=== PATIENT | male | born 1990 | race Caucasian/White ===

== ENCOUNTER 2017-08-23 19:40 | Inpatient (IN) | payer BC, OTHER ==
[~2017-08-23] VITALS: Ht 167.6 cm; Wt 64.4 kg
[2017-08-23] MEDS ORDERED: HYDROXYZINE PAMOATE 25 MG CAPSULE PO PRN (20:00)
[2017-08-23] MEDS ORDERED: CLONIDINE HCL 0.1 MG TABLET PO PRN (20:00)
[2017-08-23] MEDS ORDERED: IBUPROFEN 600 MG TABLET PO PRN (20:00)
[2017-08-23] MEDS ORDERED: MAGNESIUM HYDROXIDE 30 ML LIQUID UDC PO PRN (20:00)
[2017-08-23] MEDS ORDERED: ONDANSETRON 4 MG/2 ML VIAL IM PRN (20:00)
[2017-08-23] MEDS ORDERED: ACETAMINOPHEN 325 MG TABLET PO PRN (20:00)
[2017-08-23] MEDS ORDERED: MAG HYDROX/AL HYDROX/SIMETH 30 ML LIQUID UDC PO PRN (20:00)
[2017-08-23] MEDS ORDERED: LOPERAMIDE HCL 2 MG CAPSULE PO PRN ×2 (20:00)
[2017-08-23] MEDS ORDERED: BUPRENORPHINE HCL 2 MG TAB.SUBL SL PRN (20:00)
[2017-08-23] MEDS ORDERED: ONDANSETRON ODT 4 MG TAB.RAPDIS SL PRN (20:00)
[2017-08-23] MEDS ORDERED: MIRALAX 17 GM POWD.PACK PO PRN (20:00)
[2017-08-23] MEDS ORDERED: DICYCLOMINE HCL 20 MG TABLET PO PRN (20:00)
[2017-08-23] MEDS ORDERED: LORAZEPAM 1 MG TABLET PO PRN ×2 (20:00→21:15)
--- NOTE | 2017-08-23 20:30 | NUR ---
PRE-ADMISSION NOTE Patient is a 27-year-old male seen at intake at 2024. Patient appears diaphoretic and anxious; patient has notable body odor and appears as though he has not bathed in a few days. Patient's initial vitals as follows: BP: 128/69, HR: 83, RR: 18, SpO2 97% on room air, temp: 98.0 F, pain: 0/10. Patient states he is allergic to seafood and nuts, denies seizure history, and states this is his first detox. Patient reports using heroin daily and drinking several beers 3-4 times weekly. SN instructed patient on unit policies and procedures regarding skin check/contraband check, smoking passes, vitals Q4H, etc. Patient verbalized understanding of instructions. Admission to be completed upon patient's arrival to the unit.
[2017-08-23 20:56] LABS: BASOPHILS % (AUTO) 0.3 % (0.0-2.0); EOSINOPHILS # (AUTO) 0.2 K/uL (0.0-0.7); EOSINOPHILS % (AUTO) 1.9 % (0.0-7.0); HEMATOCRIT 44.6 % (36.7-47.1); HEMOGLOBIN 15.1 g/dL (12.5-16.3); LYMPHOCYTES # (AUTO) 1.5 K/uL (20.0-40.0); LYMPHOCYTES % (AUTO) 13.5 % (20.5-51.5); MEAN CORPUSCULAR HEMOGLOBIN 30.4 uug (23.8-33.4); MEAN CORPUSCULAR HGB CONC 34 g/dL (32.5-36.3); MEAN CORPUSCULAR VOLUME 89.8 fL (73.0-96.2); NEUTROPHILS # (AUTO) 8.6 K/uL (1.8-8.9); NEUTROPHILS % (AUTO) 75.3 % (38.5-71.5); PLATELET COUNT (AUTO) 304 K/uL (152-348); RED BLOOD CELL COUNT(AUTO) 4.97 MIL/uL (4.06-5.63); WHITE BLOOD COUNT (AUTO) 11.4 K/uL (3.6-10.2)
[2017-08-23 21:03] LABS: ALANINE AMINOTRANSFERASE 43 U/L (16-63); ALKALINE PHOSPHATASE 72 U/L (50-136); ASPARTATE AMINOTRANSFERASE 22 U/L (15-37); BILIRUBIN,TOTAL 0.6 mg/dL (0.2-1.0); CARBON DIOXIDE 28 mmol/L (21-32); CHLORIDE 103 mmol/L (98-107); CREATININE 1.2 mg/dL (0.6-1.3); GLUCOSE 110 mg/dL (74-106); MAGNESIUM 2.2 mg/dL (1.8-2.4); POTASSIUM 4.1 mmol/L (3.5-5.1); TOTAL PROTEIN, SERUM 8.1 g/dL (6.4-8.2); UREA NITROGEN, BLOOD 16 mg/dL (7-18)
[2017-08-23 21:07] LABS: ETHANOL < 3 MG/DL (0-0)
[2017-08-23 21:14] LABS: *AMPHETAMINE, URINE NEGATIVE (NEGATIVE); *BARBITURATE, URINE NEGATIVE (NEGATIVE); *CANNABINOID, URINE NEGATIVE (NEGATIVE); *COCCAINE, URINE POSITIVE (NEGATIVE); *OPIATE, URINE NEGATIVE (NEGATIVE); *PHENCYCLIDINE SCREEN,URINE NEGATIVE (NEGATIVE)
[2017-08-23] MEDS ORDERED: HYDROCORTISONE 1% CREAM 30 GM TUBE TP PRN (21:15)
[2017-08-23] MEDS ORDERED: LORAZEPAM 2 MG/1 ML VIAL IM PRN (21:15)
[2017-08-23] MEDS ORDERED: BUPRENORPHINE HCL 2 MG TAB.SUBL SL SCH (22:30)
--- NOTE | 2017-08-23 22:30 | NUR ---
ADMISSION NOTE Patient is a 27-year-old male admitted today 08/23/17 for medically supervised opiate withdrawal; arrived on the unit at 2053. Patient has had his blood drawn downstairs in the lab and has provided UDS at intake. Patient appears disheveled and diaphoretic, patient is visibly anxious and verbalizes feeling anxious about being in detox for the first time. Patient is alert and oriented x4, ambulatory with steady gait, able to answer questions coherently. Skin/body check was completed, no contraband found. When asked about common symptoms of withdrawal, patient stated, "I get bad muscle spasms in my middle back, nausea, vomiting, diarrhea, chills and hot flashes, and sweats." Patient denies any history of withdrawal induced seizures but states I checked myself into a hospital 2 Thanksgivings ago for suicidal thoughts. Patient denies SI/HI at this time. Current substance use: 1. Heroin (nasal insufflations): "5-15 bags on a good day, 2-3 bags on a bad day." Patient began using heroin 8 months ago, last intake was 08/22/17 of 3 bags. 2. ETOH (beer): "6-8 beers 3-4 times a week." Patient began drinking at age 17, approx. 10 years ago, last intake was 08/22/17 of 2 beers. Patient reports intermittent use of xanax, once a month as well as cannabis once a month. Patient reported to Dr. Craft that he occasionally uses cocaine and meth as well. Patient states that this is first detox, and that he is here because "it'll look good to the court if I go to treatment, but also I need to change my life - I wanna kick this off." When asked about current living situation patient states, "I was living with my girlfriend in our apartment but she went to a treatment facility in [place] and I came here so we gave up our apartment. I guess right now it's up in the air." Patient verbalizes that his current coping mechanism for stress is, "I use or drink." When asked whether or not he felt this form of coping was effective, patient responded, "I think it's effective, but detention, no." When asked about occupation, patient stated, "I don't really have one, I've been going from job to job." Patients initial vitals as follows: BP: 128/69, HR: 83, RR: 18, SpO2 97% on room air, temp: 98.0 F, pain: 0/10. Patients lung sounds are clear bilaterally upon auscultation, bowel sounds active x4 quadrants. Patients abdomen is soft and non-tender, patient reports his last BM was earlier this morning. Patient has two small cuts on his right index finger, and one on the back of his neck behind his right ear. Patient also has healed scars on bilateral forearms from self-inflicted wounds. Pictures of all 4 sites were taken and placed in the patients chart. Patient has food allergies to seafood and nuts. He reports following a regular diet at home. Patient is 55 and weighs 142 lbs. Patient reports he smokes pack to a full pack of cigarettes daily. Patients COWS was 11, CIWA was 14. Patient denies having a PCP and states he is not an organ donor. Patient reports using his albuterol inhaler occasionally for asthma. Patient denies using any other home medications. Patient was given a tour of the unit and shown to his room. Patient is on fall and seizure precautions, side rails up x2, bed locked in low position, call light within reach. Will continue to monitor.
[2017-08-23] MEDS: diphenhydrAMINE 50 MG CAPSULE PO PRN (23:02)
--- NOTE | 2017-08-23 23:02 | NUR ---
PRN ZOFRAN, BENADRYL, AND ATIVAN Patient reports feeling nauseous; PRN Zofran given SL. Patient reported having difficulty sleeping; PRN Benadryl given PO. Patient has a CIWA of 14; PRN Ativan 2mg given for CIWA greater than 12. Safety measures in place, side rails up x2, bed locked in lowest position, call light within reach. Will monitor for effectiveness.
[2017-08-23] MEDS: METHOCARBAMOL 750 MG TABLET PO PRN (23:13)
--- NOTE | 2017-08-23 23:13 | NUR ---
PRN ROBAXIN Patient reports middle back pain of 8/10 on pain scale. PRN Robaxin given PO. Safety measures in place, call light within reach. Will monitor for effectiveness.
--- NOTE | 2017-08-23 23:32 | NUR ---
PRN ZOFRAN REASSESSMENT Patient verbalizes improvement in nausea. PRN Zofran effective. Safety measures in place, call light within reach. Will continue to monitor.
[2017-08-24] VITALS: BP 121/76
--- NOTE | 2017-08-24 | NUR ---
COWS AND CIWA DEFERRED COWS and CIWA deferred due to patient sleeping; to be assessed and scored while patient is awake. Safety measures in place, side rails up x2, bed locked in low position, call light within reach. Will continue to monitor.
--- NOTE | 2017-08-24 00:02 | NUR ---
PRN BENADRYL AND ATIVAN REASSESSMENT Patient is observed in bed with eyes closed, respirations even and unlabored. PRN Benadryl effective. Unable to reassess CIWA at this time. Safety measures in place, call light within reach. Will continue to monitor.
--- NOTE | 2017-08-24 00:13 | NUR ---
PRN ROBAXIN REASSESSMENT Patient reports pain 0/10. PRN Robaxin noted to be effective. Safety measures in place, call light within reach. Will continue to monitor.
[2017-08-24 04:00] VITALS: BP 124/90
--- NOTE | 2017-08-24 04:00 | NUR ---
COWS AND CIWA DEFERRED COWS and CIWA deferred again at 4AM due to patient sleeping; to be assessed and scored while patient is awake. Patient's respirations are even and unlabored, 17/min. Safety measures in place, side rails up x2, bed locked in lowest position, call light within reach. Will continue to monitor.
[2017-08-24] MEDS ORDERED: ALBU18HF2 INH (06:19)
--- NOTE | 2017-08-24 07:00 | NUR ---
END OF SHIFT 302 Patient is a 27-year-old male admitted on 08/23/17 for opiate withdrawal. Patient is scheduled to start 5-day Subutex taper today. Initial COWS score was 11, and CIWA was 14, both taken last night. Patient received PRN Zofran for nausea, PRN Benadryl for difficulty sleeping, PRN Ativan 2mg for CIWA of 14, and PRN Robaxin for back pain; all PRN meds noted to be effective. Patient slept for 7 hours, total intake of 355mL, void x1, stool x0. Patient is on fall and seizure precautions with no history of seizure. Safety measures in place, side rails up x2, bed locked in lowest position, call light within reach. Will endorse to day shift.
--- NOTE | 2017-08-24 07:31 | NUR ---
Start of shift note; Received report from night nurse. Patient is a 27 year old male admitted on 08/23/17 for Opiate/ETOH withdrawals. Patient was placed on Subutex taper and PRN Ativan. Patient appears anxious, complaining of muscle aches, diaphoresis, agitation, intermittent nausea, chills. Educated patient regarding unit protocols and policies, patient verbalized understanding. All safety measures secured. Will continue to monitor patient.
[2017-08-24 08:00] VITALS: BP 128/83
[2017-08-24] MEDS ORDERED: TUBERCULIN,PURIF.PROT.DERIV. 5 TU/0.1 ML TEST ID ONE (09:00)
[2017-08-24] MEDS: BUPRENORPHINE HCL 2 MG TAB.SUBL SL SCH ×3 (09:03→20:49)
[2017-08-24] MEDS ORDERED: ALBUTEROL INH PRN (11:45)
[2017-08-24 12:00] VITALS: BP 117/73
[2017-08-24 16:00] VITALS: BP 120/68
--- NOTE | 2017-08-24 18:31 | NUR ---
End of shift note; Patient is AOx4. Patient remained compliant with treatment plan and medication regime. Patient is complaining of muscle aches, agitation, anxiety, diaphoresis, stomach cramps,patient is withdrawn and isolated. Encouraged patient to maintain adequate fluid and nutritional intake. All safety measures secured. Met all needs.
--- NOTE | 2017-08-24 19:09 | NUR ---
START OF SHIFT Patient is a 27-year-old male admitted on 08/23/17 for opiate withdrawal. Patient is currently on a 5-day Subutex taper, today is the first day, tolerating well. Patients last COWS was 9, last CIWA 4 per day shift nurse. Patient received no PRN medications during day shift. Upon assessment, patient appears disheveled and unshaven. He reports back pain of 3/10 on pain scale stating, "it hurts less than yesterday." Patient also reports headache of 2-3 out of 10 on pain scale, around the left side of his forehead, "it comes and goes." Patient reports having attended 2 groups today. Patient is on fall and seizure precautions with no history of seizures. Safety measures in place, side rails up x2, bed locked in low position, call light within reach. Will continue to monitor.
[2017-08-24 20:00] VITALS: BP 125/82
[2017-08-24] MEDS: diphenhydrAMINE 50 MG CAPSULE PO PRN (20:49)
--- NOTE | 2017-08-24 20:49 | NUR ---
PRN BENADRYL & MOTRIN Patient has a back ache and headache of 3/10 on pain scale, and is requesting sleep aid. PRN Motrin and Benadryl given PO. Safety measures in place, call light within reach. Will monitor for effectiveness.
[2017-08-24] MEDS: LORAZEPAM 1 MG TABLET PO PRN (20:57)
--- NOTE | 2017-08-24 20:57 | NUR ---
PRN ATIVAN 1 MG Patient has current CIWA of 12; PRN Ativan 1 mg given PO. Safety measures in place, side rails up x2, bed locked in lowest position, call light within reach. Will monitor for effectiveness.
--- NOTE | 2017-08-24 21:49 | NUR ---
PRN BENADRYL & MOTRIN REASSESSMENT Patient is observed resting in bed with eyes closed. Patient reports "I can hardly feel any back pain and my headache is completely gone." PRN meds effective. Safety measures in place, call light within reach. Will continue to monitor.
--- NOTE | 2017-08-24 21:57 | NUR ---
PRN ATIVAN REASSESSMENT Patient's current CIWA is 8; PRN Ativan effective in decreasing patient's anxiety and bringing down CIWA score. Safety measures in place, call light within reach. Will continue to monitor.
[2017-08-25] VITALS: BP 116/84
--- NOTE | 2017-08-25 | NUR ---
COWS & CIWA DEFERRED COWS and CIWA deferred due to patient sleeping; to be assessed and scored while patient is awake. Respirations even and unlabored, 16/min. Safety measures in place, side rails up x2, bed locked in lowest position, call light within reach. Will continue to monitor.
[2017-08-25 04:00] VITALS: BP 118/84
--- NOTE | 2017-08-25 04:00 | NUR ---
COWS & CIWA DEFERRED COWS and CIWA deferred again at 4AM due to patient sleeping; to be assessed and scored while patient is awake. Respirations even and unlabored, 14/min. Safety measures in place, side rails up x2, bed locked in low position, call light within reach. Will continue to monitor.
--- NOTE | 2017-08-25 07:00 | NUR ---
END OF SHIFT Patient is a 27-year-old male admitted on 08/23/17 for opiate withdrawal. Patient is currently on a 5-day Subutex taper, today is the second day, tolerating well. Patients last COWS was 10, last CIWA 8. Patient received PRN Benadryl, Motrin, and Ativan; all noted to be effective. Patient slept for 7 hours, total intake 1,243mL, void x2, stool x2. Patient is on fall and seizure precautions with no history of seizures. Safety measures in place, side rails up x2, bed locked in low position, call light within reach. Will endorse to day shift.
--- NOTE | 2017-08-25 07:24 | NUR ---
Start of shift note; Received report from night nurse. Patient is a 27 year old male admitted on 08/23/17 for Opiate/ETOH withdrawals. Patient was placed on Subutex taper and PRN Ativan. Patient appears anxious, complaining of muscle aches, diaphoresis, agitation, intermittent nausea, chills. Educated patient regarding unit protocols and policies, patient verbalized understanding. Encouraged patient to participate in group therapy and activities today. All safety measures secured. Will continue to monitor patient.
[2017-08-25 08:00] VITALS: BP 129/87
[2017-08-25] MEDS ORDERED: BUPRENORPHINE HCL 2 MG TAB.SUBL SL SCH (09:00)
[2017-08-25] MEDS ORDERED: KETOROLAC TROMETHAMINE 30 MG INJ IM PRN (10:30)
[2017-08-25 12:00] VITALS: BP 122/87
[2017-08-25] MEDS: BUPRENORPHINE HCL 2 MG TAB.SUBL SL SCH ×2 (14:15→21:03)
[2017-08-25 16:00] VITALS: BP 126/88
--- NOTE | 2017-08-25 18:37 | NUR ---
End of shift note; Patient is AOx4. Patient remained compliant with treatment plan and medication regime. Patient is complaining of muscle aches, agitation, anxiety, diaphoresis, stomach cramps. Encouraged patient to maintain adequate fluid and nutritional intake. Patient participated in group activities and therapies. All safety measures secured. Met all needs.
--- NOTE | 2017-08-25 19:30 | NUR ---
START OF SHIFT Pt is a 27 y/o male admitted on 08/23/17 for ETOH and opiate withdrawal. Pt is on a 5 day Subutex taper that started on 08/23/17, tolerating well. Pt has PRN Ativan available. Last COWS 9 and CIWA 5 and no PRNs administered. Upon assessment pt presents with anxiety, restlessness, body aches, muscle spasms in lower back /10, tremors, flushed skin, increased HR, flat and depressed affect, slumped posture, anhedonia and dysphoria. Pt on VTE pumps, educated pt about importance of use, pt verbalized understanding. Medications due. Safety measures in place. Call light within reach. Will continue to monitor.
[2017-08-25 20:00] VITALS: BP 128/81
[2017-08-25] MEDS: LORAZEPAM 1 MG TABLET PO PRN (21:02)
[2017-08-25] MEDS: GABAPENTIN 300 MG CAPSULE PO SCH (21:02)
--- NOTE | 2017-08-25 21:02 | NUR ---
PRN ATIVAN 1 MG ADMINISTRATION SHARATHWA 9, orders to give Ativan 1 mg. Pt presents with anxiety, intermittent sweats, agitation, restlessness and difficulty sitting still. Safety measures in place. Call light within reach. Will continue to monitor. Addendum: 08/25/17 at 2337 by ROBERT BOBBY RN CORRECTION: IGNACIO [id number]
[2017-08-25] MEDS: BACLOFEN 10 MG TABLET PO SCH (21:03)
[2017-08-25] MEDS: CLONIDINE HCL 0.1 MG TABLET PO SCH (21:03)
--- NOTE | 2017-08-25 22:02 | NUR ---
PRN ATIVAN 1 MG REASSESSMENT CIWA 7. Pt has improvement in tremors and anxiety. Pt still presents with anxiety and restlessness. Safety measures in place. Call light within reach. Will continue to monitor.
--- NOTE | 2017-08-26 | NUR ---
COWS/CIWA DEFERRED AND VITALS REFUSED Pt laying in bed with eyes closed, COWS/CIWA deferred, to be assessed when pt is awake per orders. Vitals refused. Respirations even and unlabored. Safety measures in place. Call light within reach. Will continue to monitor.
--- NOTE | 2017-08-26 07:05 | NUR ---
END OF SHIFT Pt is a 27 y/o male admitted on 08/23/17 for ETOH and opiate withdrawal. Pt is on a 5 day Subutex taper that started on 08/23/17, tolerating well. Pt on VTE pumps, educated pt about importance of use, pt verbalized understanding. Pt presented with anxiety, restlessness, body aches, muscle spasms in lower back 6/10, tremors, flushed skin, increased HR, flat and depressed affect, slumped posture, anhedonia and dysphoria. Scheduled medications and PRN Ativan 1 mg administered, effective in S/S of withdrawal AEB COWS 9 and CIWA 8 lowered to COWS 9 and CIWA 7 during shift. Pt slept 6 hours. Intake 950 ml, void x 2, stool x 0. Safety measures in place. Call light within reach. Pts needs have been met. Endorsed to day shift nurse.
--- NOTE | 2017-08-26 07:28 | NUR ---
Start of shift note; Received report from night nurse. Patient is a 27 year old male admitted on 08/23/17 for Opiate/ETOH withdrawals. Patient was placed on Subutex taper and PRN Ativan. Patient appears anxious, complaining of muscle aches, diaphoresis, agitation, intermittent nausea, chills. Educated patient regarding unit protocols and policies, patient verbalized understanding. Encouraged patient to maintain adequate nutritional and fluid intake. Patient slept for 6 hours. All safety measures secured. Will continue to monitor patient.
[2017-08-26 08:00] VITALS: BP 127/80
[2017-08-26] MEDS: BUPRENORPHINE HCL 2 MG TAB.SUBL SL SCH ×3 (08:21→20:57)
[2017-08-26] MEDS: BACLOFEN 10 MG TABLET PO SCH ×3 (08:21→20:58)
[2017-08-26] MEDS: GABAPENTIN 300 MG CAPSULE PO SCH ×2 (08:21→20:58)
[2017-08-26] MEDS: CLONIDINE HCL 0.1 MG TABLET PO SCH ×2 (08:21→20:58)
[2017-08-26 10:08] LABS: HEPATITIS B SURFACE AG Negative (Negative)
[2017-08-26 12:00] VITALS: BP 133/82
[2017-08-26 16:00] VITALS: BP 137/87
--- NOTE | 2017-08-26 18:41 | NUR ---
End of shift note; Patient is AOx4. Patient remained compliant with treatment plan and medication regime. Patient is complaining of muscle aches, agitation, anxiety, diaphoresis, stomach cramps. Encouraged patient to maintain adequate fluid and nutritional intake. Patient participated in group activities and therapies. All safety measures secured. Last COWS score is 9 and last CIWA score is 4 at 1600. Met all needs.
--- NOTE | 2017-08-26 19:30 | NUR ---
START OF SHIFT Pt is a 27 y/o male admitted on 08/23/17 for ETOH and opiate withdrawal. Pt is on a 5 day Subutex taper that started on 08/23/17, tolerating well. Pt has PRN Ativan available. Last COWS 9 and CIWA 4 and no PRNs administered. Upon assessment pt presents with anxiety, restlessness, body aches, muscle spasms in lower back 10, tremors, flushed skin, increased HR and BP, flat and depressed affect, slumped posture, difficulty falling asleep, anhedonia and dysphoria. Pt on VTE pumps, educated pt about importance of use, pt verbalized understanding. Medications due. Safety measures in place. Call light within reach. Will continue to monitor.
[2017-08-26 20:00] VITALS: BP 132/76
[2017-08-26] MEDS: diphenhydrAMINE 50 MG CAPSULE PO PRN (21:01)
[2017-08-26] MEDS: METHOCARBAMOL 750 MG TABLET PO PRN (21:01)
--- NOTE | 2017-08-26 21:01 | NUR ---
CRISTINA DESOUZA AND RHONDA Pt complains of body aches, mostly in lower back 6/10 and requests sleep aid. Safety measures in place. Call light within reach. Will continue to monitor.
--- NOTE | 2017-08-26 22:01 | NUR ---
PRN ROBAXIN AND BENADRYL REASSESSMENT Pt reports body aches reduced to tolerable level. Pt remains awake at this time, but states "I'm more tired now...I'll probably go to sleep soon." Safety measures in place. Call light within reach. Will continue to monitor.
[2017-08-27] VITALS: BP 137/86
--- NOTE | 2017-08-27 07:10 | NUR ---
END OF SHIFT Pt is a 27 y/o male admitted on 08/23/17 for ETOH and opiate withdrawal. Pt is on a 5 day Subutex taper that started on 08/23/17, tolerating well. Pt on VTE pumps, educated pt about importance of use, pt verbalized understanding. Pt presented with anxiety, restlessness, body aches, muscle spasms in lower back 6/10, tremors, flushed skin, increased HR and BP, flat and depressed affect, slumped posture, difficulty falling asleep, anhedonia and dysphoria. Scheduled medications and PRN Robaxin and Benadryl administered, effective in S/S od withdrawal AEB COWS 10 CIWA 9 lowered to COWS 8 CIWA 7 during shift. Pt slept 7 hours. Intake 1835 ml, void x 3, stool x 1. Safety measures in place. Call light within reach. Pts needs have been met. Endorsed to day shift nurse.
[2017-08-27 08:00] VITALS: BP 127/79
--- NOTE | 2017-08-27 08:20 | NUR ---
START OF SHIFT: RECEIVED PT A/O X 4. HE PRESENTS WITH ANXIOUS MOOD AND CONGRUENT AFFECT.HE REPORTS GENERALIZED BODY ACHES,ANXIETY,NIGHT SWEATS , CHILLS, RESTLESSNESS AND IRRITABILITY. COWS 8. HE STATES SUBUTEX IS EFFECTIVE IN REDUCING S/S OF W/D. ENCOURAGED GROUP ATTENDANCE TO IMPROVE COPING SKILLS AND PREVENT RELAPSE. WILL CONTINUE TO MONITOR AND MANAGE S/S OF W/D.
[2017-08-27] MEDS: GABAPENTIN 300 MG CAPSULE PO SCH ×3 (09:04→21:03)
[2017-08-27] MEDS: BUPRENORPHINE HCL 2 MG TAB.SUBL SL SCH ×2 (09:05→21:03)
[2017-08-27] MEDS: BACLOFEN 10 MG TABLET PO SCH (09:05)
[2017-08-27] MEDS: CLONIDINE HCL 0.1 MG TABLET PO SCH ×2 (09:05→15:20)
[2017-08-27 12:00] VITALS: BP 155/94
[2017-08-27] MEDS: LIDOCAINE 5% PATCH TD SCH (12:08)
[2017-08-27] MEDS ORDERED: CLON0.1T14 PO (13:17)
[2017-08-27] MEDS ORDERED: DIPH50CA37 PO (13:17)
[2017-08-27] MEDS ORDERED: HYDR-3895 PO (13:17)
[2017-08-27] MEDS ORDERED: GABA-534 PO ×2 (13:17)
[2017-08-27] MEDS ORDERED: LIDO30AD10 TD (13:17)
[2017-08-27] MEDS ORDERED: METH-406 PO (13:17)
[2017-08-27] MEDS ORDERED: IBUP-1955 PO (13:17)
[2017-08-27] MEDS: BACLOFEN 20 MG TABLET PO SCH ×2 (15:19→21:03)
[2017-08-27] MEDS: SERTRALINE HCL 50 MG TABLET PO SCH (15:19)
[2017-08-27 16:00] VITALS: BP 110/65
--- NOTE | 2017-08-27 18:44 | NUR ---
END OF SHIFT: PT CONTINUES ON SUBUTEX TAPER TO MANAGE S/S OF W/D WHICH INCLUDE ANXIETY,DEPRESSION,RESTLESSNESS,AND IRRITABILITY.LAST COWS 7. HE INTERACTED WITH PEERS AND ATTENDED GROUPS AND ACTIVITIES TODAY. NEW ORDER PER PSYCH MD FOR [place] DAILY WHICH WAS ADMINISTERED ORDERED.NO PRNS GIVEN ON DAY SHIFT. WILL PASS SHIFT REPORT TO ONCOMING NIGHT NURSE.
[2017-08-27 20:00] VITALS: BP 125/82
--- NOTE | 2017-08-27 20:00 | NUR ---
Start of Shift Note Received a 27 y/o male px, admitted for medically supervised withdrawals from Heroin and Beer. Px was placed on 5 day Subutex taper. Px is tolerating well. Last reported COWS 7 from AM shift nurse. During the rounds at 1999, px was awake in the room in standing position. Px looks anxious. Unfolded clothes noted on top of the cabinet. Few unfinished drinks noted on top of bedside table. Px stated that his anxiety is 3-4/10 and back pain 2/10. Bed is in lowest position, side rails up 2x, and call light within reach. We'll continue to monitor.
[2017-08-27] MEDS: CLONIDINE HCL 0.2 MG TABLET PO SCH (21:03)
[2017-08-28] VITALS: BP 108/60
[2017-08-28 04:00] VITALS: BP 106/63
--- NOTE | 2017-08-28 04:00 | NUR ---
COWS and CIWA deferred COWS and CIWA deferred due to the px is asleep, to assess if the px is awake per doctor's order. We'll continue to monitor.
--- NOTE | 2017-08-28 07:08 | NUR ---
End of Shift Note During the shift, px didn't receive any PRN medication. Px didn't complain of anything. Px's oral intake is 1 L, voided 2x, No BM. Px slept for 6.5 hours. Last COWS 6 and CIWA 6. At 0630, px is asleep on bed in fowlers position. Bed is in lowest position, side rails up 2x, and call light within reach. We'll continue to monitor. Px endorsed to am shift nurse.
--- NOTE | 2017-08-28 07:15 | NUR ---
Start of Shift Notes: Received patient in his room. Awake, alert and verbally responsive. Patient appears disheveled. Shower was encouraged. Appears drowsy when waking. Denies S/i or H/I noted. No AV hallucinations noted. Unfolded clothes noted on patient's bedside table. On fall and seizure precautions. Patient is a 27 year old male admitted for opiate and ETOH withdrawal. Placed on a 5-day Subutex taper as ordered. No adverse reactions noted. Educated patient on his current plan of care for the day and his medication regimen. Encouraged oral fluid intake and encouraged group participation to learn new skills to prevent relapse. Will continue to monitor.
[2017-08-28 08:00] VITALS: BP 104/76
[2017-08-28] MEDS: CLONIDINE HCL 0.1 MG TABLET PO SCH ×2 (08:41→14:09)
[2017-08-28] MEDS: SERTRALINE HCL 50 MG TABLET PO SCH (08:41)
[2017-08-28] MEDS: GABAPENTIN 300 MG CAPSULE PO SCH ×3 (08:41→21:50)
[2017-08-28] MEDS: BACLOFEN 20 MG TABLET PO SCH ×3 (08:41→21:50)
[2017-08-28] MEDS: LIDOCAINE 5% PATCH TD SCH (08:41)
[2017-08-28] MEDS ORDERED: BUPRENORPHINE HCL 2 MG TAB.SUBL SL SCH (09:00)
[2017-08-28 12:00] VITALS: BP 118/84
--- NOTE | 2017-08-28 13:30 | NUR ---
Mid Shift Notes: COWS 7/CIWA 3, patient is in his room. Eating lunch. Participated in group and activities in AM.
[2017-08-28 16:00] VITALS: BP 119/80
--- NOTE | 2017-08-28 19:08 | NUR ---
End of Shift Notes: Patient completed his 5-day Subutex taper successfully to manage symptoms related to opiate withdrawal. VS monitored closely. No significant abnormalities noted. Withdrawal symptoms were closely monitored. Initial COWs 8/CIWA 5, patient presented with gross tremors, chills, hot flashes, myalgia, anxiety, agitation, facial flushing. Last COWS 5/CIWA 3. Patient verbalized that Subutex was effective in reducing his withdrawal symptoms. Able to participate in group and activities. Appetite good. All needs met and attended. Will continue to monitor.
[2017-08-28 20:00] VITALS: BP 129/77
--- NOTE | 2017-08-28 20:00 | NUR ---
Start of Shift Note Received a 27 y/o male px, admitted for medically supervised withdrawals from Heroin and Beer. Px finished 5 day Subutex taper. Px tolerated well. Px is to be D/C tomorrow, 08/29/2017. Last reported COWS 5 and CIWA 3 by AM shift nurse. During the rounds at 1999, px was awake on bed in fowlers position. Px looks anxious. Px stated that his anxiety is 5-6/10. Unfolded clothes noted on top of the cabinet. Bed is in lowest position, side rails up 2x, and call light within reach. We'll continue to monitor.
[2017-08-28] MEDS: CLONIDINE HCL 0.2 MG TABLET PO SCH (21:50)
[2017-08-29] VITALS: BP 111/78
[2017-08-29 04:00] VITALS: BP 109/77
--- NOTE | 2017-08-29 04:00 | NUR ---
COWS and CIWA deferred COWS and CIWA deferred at 0000 and 0400 due to the px is asleep, to assess if the px is awake per doctor's order. We'll continue to monitor.
--- NOTE | 2017-08-29 07:07 | NUR ---
End of Shift Note Px is to be D/C today, 08/29/2017. During the shift, px didn't receive any PRN medication. Px's oral intake is 1 L, voided 2x, No BM. Px slept for 6.5 hours. Last COWS 5 and CIWA 6. At 0630, px is asleep on bed in fowlers position. Bed is in lowest position, side rails up 2x, and call light within reach. We'll continue to monitor. Px endorsed to am shift nurse.
[2017-08-29 08:00] VITALS: BP 128/76
--- NOTE | 2017-08-29 08:10 | NUR ---
START OF SHIFT: RECEIVED PT A/O X 4. HE PRESENTS WITH ANXIOUS MOOD AND CONGRUENT AFFECT.HE REPORTS MILD GENERALIZED BODY ACHES AND SOME ANXIETY ABOUT DISCHARGING THIS AM. COWS 2 TAPER COMPLETED. HE STATES SUBUTEX WAS EFFECTIVE IN REDUCING S/S OF W/D. HE EXPRESSES VERBAL ENTHUSIASM TOWARD RECOVERY AND GOING TO RTC THIS AM. WILL CONTINUE WITH DISCHARGE PROCESS.
[2017-08-29 08:33] VITALS: BP 128/78
[2017-08-29] MEDS: CLONIDINE HCL 0.1 MG TABLET PO SCH (08:33)
[2017-08-29] MEDS: BACLOFEN 20 MG TABLET PO SCH (08:33)
[2017-08-29] MEDS: SERTRALINE HCL 50 MG TABLET PO SCH (08:33)
[2017-08-29] MEDS: LIDOCAINE 5% PATCH TD SCH (08:33)
[2017-08-29] MEDS: GABAPENTIN 300 MG CAPSULE PO SCH (08:33)
--- NOTE | 2017-08-29 09:49 | NUR ---
DISCHARGE: PT IS A/O X 4. HE DENIES S/I AND H/I. HE STATES HE FEELS ENTHUSIASTIC TOWARD RECOVERY. BELONGINGS RETURNED. EDUCATED PT ON DISCHARGE MEDS AND INSTRUCTIONS. PT EXPRESSED VERBAL UNDERSTANDING OF EDUCATION . SOUND ENGINEERING TECHNICIAN ESCORTED PT TO [facility] WHERE HE WAS TRANSPORTED BY [employer] [place] TO [facility] TO CHANGE AT 0932.
== END 2017-08-29 09:32 | disposition other institution (70) | DRG 895 ==
LOC: SRC 19:40
PROVIDERS: ADMIT Internal Medicine; ATTEND Internal Medicine
PROC: HZ2ZZZZ Detoxification Services for Substance Abuse Treatment (ICD-10-PCS; principal; 2017-08-23)
PROC: HZ41ZZZ Group Counseling for Substance Abuse Treatment, Behavioral (ICD-10-PCS; 2017-08-24)
PROC: HZ31ZZZ Individual Counseling for Substance Abuse Treatment, Behavioral (ICD-10-PCS; 2017-08-26)
DX: F10.230 Alcohol dependence with withdrawal, uncomplicated (principal); D72.829 Elevated white blood cell count, unspecified; F11.23 Opioid dependence with withdrawal; Y90.9 Presence of alcohol in blood, level not specified; F13.10 Sedative, hypnotic or anxiolytic abuse, uncomplicated; F17.210 Nicotine dependence, cigarettes, uncomplicated; J45.20 Mild intermittent asthma, uncomplicated; Z59.1 Inadequate housing; Z80.7 Family history of other malignant neoplasms of lymphoid, hematopoietic and related tissues; Z81.1 Family history of alcohol abuse and dependence; F41.9 Anxiety disorder, unspecified; F12.10 Cannabis abuse, uncomplicated; F15.10 Other stimulant abuse, uncomplicated; L20.9 Atopic dermatitis, unspecified; F32.9 Major depressive disorder, single episode, unspecified; F14.10 Cocaine abuse, uncomplicated
CPT/HCPCS: 36415; 70030-TC; 80307; 80353; 83735; 85025; 86580; 86592; 86705; 86803; 87340; 87806; A4663; G0480; Q0162; Q0163